=== PATIENT | male | born 1980 | race Caucasian/White ===

== ENCOUNTER 2016-12-13 14:52 | Inpatient (IN) | payer OTHER ==
[~2016-12-13] VITALS: Ht 165.1 cm; Wt 93.6 kg
[~2016-12-13 14:52] MED LIST: ELIQUIS5 MG PO; GLUCOMETER; HUMULIN R U-100 U/ML SUBQ; KEFLEX250 MG PO; LEVEMIR100 U/ML SUBQ; METFORMIN1000 MG PO; NORCO 10/325 MG1 TAB PO; PEPCID20 MG PO; ZESTRIL5 MG PO
--- NOTE | 2016-12-13 14:52 | NUR ---
Patient BIBA ACLS, transferred to bed 5. RN evaluating patient at bedside.
--- NOTE | 2016-12-13 14:54 | NUR ---
Dr. Morgan evaluating patient at bedside.
[2016-12-13] MEDS ORDERED: NACL 0.9% 1,000 ML IV SCH (14:58)
[2016-12-13] MEDS ORDERED: INSULIN HUMAN REGULAR 100 UNITS/ML 10 ML VIAL IVP ONE ×2 (15:00→16:05)
[2016-12-13] MEDS ORDERED: ONDANSETRON 4 MG/2 ML VIAL IVP ONE (15:00)
[2016-12-13] MEDS ORDERED: NACL 0.9% 2,000 ML IV ONE (15:00)
[2016-12-13 15:07] VITALS: BP 97/61
--- NOTE | 2016-12-13 15:12 | NUR ---
36/M BIB EMS, FAMILY STATES PT. MORE CONFUSED THAN NORMAL, BLOOD SUGAR AT HOME IN THE 400'S, HERE 600+, PT. NON AMBULATORY AND ALTERED. PATIENT PRESENTS TO ED WITH NON VERBAL,N/V NOTED AT THIS TIME. SKIN IS PALE/COLD; LUNGS CLEAR BL; HR EVEN AND REGULAR; PATIENT POSITIONED FOR COMFORT; HOB ELEVATED; BEDRAILS UP X2; BED DOWN. ER MD MADE AWARE OF PT STATUS.
--- NOTE | 2016-12-13 15:40 | NUR ---
PT MORE ALERT & ORIENTED; PT ABLE TO VERBALIZE NEEDS; STATED " I WANT SOMETHING FOR MY LIPS"; LIP SWABS PROVIDED; PT STABLE AT THIS TIME; WILL CONTINUE TO MONITOR.
[2016-12-13] MEDS ORDERED: cefTRIAXone 2,000 MG in DEXTROSE 5% 100 ML IV ONE (16:00)
[2016-12-13] MEDS ORDERED: INSULIN HUMAN REGULAR 100 UNITS in NACL 0.9% 100 ML IV ONE (16:05)
[2016-12-13] MEDS ORDERED: HYDROmorphone 1 MG/ML AMP IVP PRN ×2 (16:15)
[2016-12-13] MEDS ORDERED: cefTRIAXone 2,000 MG VIAL ONE (16:26)
--- NOTE | 2016-12-13 16:41 | NUR ---
LAB COLLECTING BLOOD CULTURES AT BEDSIDE AT THIS TIME.
--- NOTE | 2016-12-13 16:41 | NUR ---
GAVE REPORT TO GRACY TURPIN.
--- NOTE | 2016-12-13 16:50 | NUR ---
RECEIVED PT AAO X 3, BREATHING NORMALLY, LETHARGIC. SR ON THE MONITOR, LUNGS CLEAR TO BL. BOWEL SOUNDS PRESENT TO ALL QUADRANTS, ABLE TO MOVE ALL EXTREMITIES, FAMILY AT BEDSIDE, SCARS TO BL LEGS, BLADDER NON DISTENDED, WILL CONTINUE TO CARE.
--- NOTE | 2016-12-13 16:50 | NUR ---
Patient will be admitted to care of DR. BAUTISTA. Admited to ICU. Will go to room ICU 5. Belongings list completed. Report to GRACY TURPIN.
[2016-12-13 17:00] VITALS: BP 106/61
[2016-12-13] MEDS ORDERED: DEXTROSE 50% 50 ML SYR IVP PRN (17:10)
[2016-12-13] MEDS ORDERED: MORPHINE SULFATE 4 MG/ML SYR IVP PRN (17:15)
[2016-12-13] MEDS ORDERED: ALBUTEROL 0.083% 2.5 MG/3 ML NEBU IH PRN (17:15)
--- NOTE | 2016-12-13 17:16 | NUR ---
SPOKE TO REGARDING ABG ORDERS, PHYSICIAN STATES PT DOES NOT NEED ABG AND WILL CANCEL ORDERS.
[2016-12-13] MEDS: BLOOD GLUCOSE MONITORING 1 DEV DEV FS SCH ×7 (17:28→23:12)
--- NOTE | 2016-12-13 17:28 | NUR ---
DR LISA AT BEDSIDE ASSESSING PATIENT. RECEIVED ORDERS. WILL FOLLOW UP. RECEIVED CALL FROM LAB AT 1725 FOR CRITICAL LACTIC ACID 3.2. MD AT BEDSIDE AND AWARE. WILL FOLLOW UP WITH ORDERS.
[2016-12-13] MEDS: DEXT 5% / NACL 0.45% 1,000 ML IV SCH ×2 (17:32→23:49)
[2016-12-13] MEDS: INSULIN HUMAN REGULAR 100 UNITS in NACL 0.9% 100 ML IV SCH (17:32)
[2016-12-13 18:00] VITALS: BP 98/63
--- NOTE | 2016-12-13 18:00 | NUR ---
DR. LISA AT BEDSIDE, MD ASSESSED PT AND SPOKE WITH FAMILY REGARDING PT'S CARE AND CONDITION, WILL CONTINUE TO MONITOR PT
--- NOTE | 2016-12-13 19:00 | NUR ---
US TECH AT BEDSIDE.
--- NOTE | 2016-12-13 19:22 | NUR ---
REPORT GIVEN TO GRACY DUNNE, WILL CONTINUE TO CARE FOR THE PT.
--- NOTE | 2016-12-13 19:23 | NUR ---
RECEIVED REPORT FROM OBI RN. INITIAL ASSESSMENT COMPLETED. PT IS LETHARGIC AT THIS TIME BUT AROUSABLE TO VERBAL STIMULI. PT IS ON ROOM AIR. NO SIGNS OF DISTRESS OR SOB NOTED. 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 IV ACCESS AT LEFT AC 20G AND RIGHT AC 20G. ON INSULIN DRIP ORDERED. PATENT, INTACT AT THIS TIME. URINAL AT BEDSIDE. SAFETY MEASURE ENSURE, BED IN LOW POSITION. WILL CONTINUE TO MONITOR.
--- NOTE | 2016-12-13 19:48 | NUR ---
RT AT BEDSIDE.
[2016-12-13 20:00] VITALS: BP 98/51
[2016-12-13] MEDS ORDERED: HYDROcodone/APAP 10/325 MG 1 TAB TAB PO SCH (20:00)
[2016-12-13] MEDS ORDERED: HYDROcodone/APAP 10/325 MG 1 TAB TAB PO PRN (20:00)
[2016-12-13] MEDS: ONDANSETRON 4 MG/2 ML VIAL IVP PRN (20:24)
--- NOTE | 2016-12-13 20:40 | NUR ---
CHARGE NURSE RECEIVED CRITICAL REPORT FROM LAB AT [address] RUBY AT 2029. RECEIVED CALL BACK FROM DR. RUBY AT 2039 AND NOTIFIED OF THE CRITICAL RESULTS. NO NEW ORDERS MADE. WILL CONTINUE TO MONITOR.
--- NOTE | 2016-12-13 20:41 | NUR ---
DR. RUBY SAID K LEVEL OF 2.7 IS OK SINCE PT IS ON INSULIN DRIP. WILL CONTINUE TO MONITOR.
--- NOTE | 2016-12-13 20:41 | NUR ---
PT NAUSEATED AND VOMITING, ZOFRAN GIVEN ORDERED. DR. RUBY AWARE.
[2016-12-13 22:00] VITALS: BP 100/67
--- NOTE | 2016-12-13 22:25 | NUR ---
PAGED DR. RUBY AT 2219. RECEIVED A CALL BACK AT 2224. NOTIFIED ABOUT US OF BILATERAL LOWER EXTREMITIES RESULT. WITH ORDERS MADE. MD ALSO AWARE THAT PT IS STILL VOMITING, WITH ORDERS MADE. MD NOTIFIED OF BSL STILL HIGH, WITH ORDERS MADE. WILL CONTINUE TO MONITOR.
[2016-12-13] MEDS ORDERED: COMMUNICATION ORDER MC PRN (22:50)
[2016-12-14] VITALS (12 sets, daily range): BP systolic 91–120; BP diastolic 44–75
[2016-12-14] MEDS: BLOOD GLUCOSE MONITORING 1 DEV DEV FS SCH ×24 (00:24→23:20)
--- NOTE | 2016-12-14 00:33 | NUR ---
AWARE OF HI BSL. WILL CONTINUE TO MONITOR. Addendum: 12/14/16 at 0132 by Gauri Sapp RN DR. RUBY SAID TO CHECK GLUCOSE LEVEL AND ANION GAP FROM LAB DRAW THAT IS DUE AT THIS TIME. IF THE RESULT IS TRENDING DOWN JUST CONTINUE INSULIN DRIP ORDERED.
--- NOTE | 2016-12-14 00:40 | NUR ---
GUITAR PLAYER AT BEDSIDE.
--- NOTE | 2016-12-14 01:44 | NUR ---
RECEIVED CRITICAL REPORT FROM LAB. GLUCOSE OF 600, K 2.5. PT STILL ON INSULIN DRIP AT THIS TIME. WILL CONTINUE TO MONITOR.
[2016-12-14] MEDS: INSULIN HUMAN REGULAR 100 UNITS in NACL 0.9% 100 ML IV SCH ×3 (02:02→18:10)
--- NOTE | 2016-12-14 02:20 | NUR ---
PT HAS BEEN ASKING FOR WATER, EXPLAINED TO HIM THAT THE DOCTOR ORDERED NOTHING BY MOUTH SO HE CANNOT HAVE ANYTHING. PT STILL INSISTING TO HAVE SOME WATER.
--- NOTE | 2016-12-14 03:19 | NUR ---
NO SIGNS OF DISTRESS/NO SOB NOTED. WILL CONTINUE TO MONITOR.
--- NOTE | 2016-12-14 04:52 | NUR ---
PT COMPLAINT OF DRYNESS OF THROAT AND ASKED FOR WATER, REINSTRUCTED PT THAT HE CANNOT EAT OR DRINK ANYTHING AT THIS TIME PER MD ORDER ON NPO. PT VERBALIZED UNDERSTANDING. WILL CONTINUE TO MONITOR.
--- NOTE | 2016-12-14 05:36 | NUR ---
RECEIVED CRITICAL LAB REPORT FOR GLUCOSE AND POTASSIUM LEVEL. GLUCOSE LEVEL TRENDING DOWN, AWARE OF LOW K LEVEL ON 12/13/161999. PT IS STILL ON INSULIN DRIP. WILL CONTINUE TO MONITOR.
--- NOTE | 2016-12-14 05:55 | NUR ---
MORNING CARE DONE. NO SIGNS OF DISTRESS/NO SOB NOTED.
--- NOTE | 2016-12-14 06:13 | NUR ---
PT AGAIN ASKED FOR WATER, REMINDED HIM AGAIN HE CANNOT HAVE ANYTHING BY MOUTH AT THIS TIME.
[2016-12-14] MEDS: DEXT 5% / NACL 0.45% 1,000 ML IV SCH ×3 (06:22→18:56)
[2016-12-14] MEDS: ONDANSETRON 4 MG/2 ML VIAL IVP PRN (06:22)
--- NOTE | 2016-12-14 07:19 | NUR ---
REPORT GIVEN TO GRACY NOLAN FOR CONTINUITY OF CARE.
--- NOTE | 2016-12-14 07:20 | NUR ---
RECEIVED REPORT FROM GRACY COATES. NO SIGNS OF ACUTE DISTRESS AT THIS TIME, NO C/O PAIN. PT IS ON ROOM AIR. PT IS AAOX4. IV TO RIGHT AC #20 AND LEFT AC #20 PATENT AND INTACT. PT IS ON INSULIN DRIP AT 12 UNITS/HR. SKIN IS INTACT. SAFETY PRECAUTIONS IN PLACE WITH BED IN LOWEST POSITION AND SIDE RAILS UP X2. CALL LIGHT WITHIN REACH. PT IS CURRENTLY SINUS TACHYCARDIA ON MONITOR. WILL CONTINUE TO MONITOR.
[2016-12-14] MEDS: ENOXAPARIN 100 MG/ML SYR SUBQ SCH (08:32)
--- NOTE | 2016-12-14 08:32 | NUR ---
ASLEEP EASILY AWAKENS IN SFW POSITION PATIENT ASSESSMENT DONE NOTED CXR DATED 12/10/2016 REVIEWED HHN PRN THERAPY GIVEN ORDERED TOLERATED WELL WITHOUT INCIDENT
--- NOTE | 2016-12-14 08:44 | NUR ---
PT TOLERATED MEDS WELL.
--- NOTE | 2016-12-14 09:34 | NUR ---
RECEIVED CALLBACK FROM DR. LISA. NEW ORDERS RECEIVED.
--- NOTE | 2016-12-14 09:35 | NUR ---
DR. LISA NOTIFIED OF LOW POTASSIUM: 2.6. NO NEW ORDERS AT THIS TIME.
[2016-12-14] MEDS: PROMETHAZINE 25 MG/ML VIAL IVP PRN ×2 (10:44→20:48)
--- NOTE | 2016-12-14 10:46 | NUR ---
PT C/O NAUSEA. ADMINISTERED PHENERGAN ORDERED FOR PRN NAUSEA. PT TOLERATED WELL.
--- NOTE | 2016-12-14 11:24 | NUR ---
CHECKED ON PT. RESTING AT THIS TIME, AROUSABLE. CALL LIGHT WITHIN REACH. WILL CONTINUE TO MONITOR.
--- NOTE | 2016-12-14 13:05 | NUR ---
DR. LISA IN TO SEE PT. WILL FOLLOW UP ON ORDERS.
--- NOTE | 2016-12-14 13:10 | NUR ---
DR. LISA AWARE THAT PT DE-SATURATES 88%-89% WHILE SLEEPING.
--- NOTE | 2016-12-14 14:00 | NUR ---
OFFERED ORAL AND HYGIENE CARE. PT REFUSED.
--- NOTE | 2016-12-14 14:20 | NUR ---
CHECKED ON PT. RESTING AT THIS TIME, AROUSABLE. CALL LIGHT WITHIN REACH. WILL CONTINUE TO MONITOR.
--- NOTE | 2016-12-14 15:32 | NUR ---
PT TOLERATED MEDS WELL.
--- NOTE | 2016-12-14 16:15 | NUR ---
CHECKED BS: 359. PER PROTOCOL, INCREASED INSULIN DRIP TO 5 UNITS/HR. PAGED DR. LISA. AWAITING CALLBACK.
--- NOTE | 2016-12-14 16:21 | NUR ---
RECEIVED CALLBACK FROM DR. LISA. NEW ORDERS RECEIVED.
--- NOTE | 2016-12-14 17:46 | NUR ---
RECEIVED CALL FROM PT'S SISTER, ATTILA. UPDATED HER ON PT'S PLAN OF CARE. INFORMED SHE WILL COME IN TOMORROW TO VISIT PT.
--- NOTE | 2016-12-14 18:16 | NUR ---
PT UP IN BED AND WATCHING TV. ALL NEEDS MET AT THIS TIME. CALL LIGHT WITHIN REACH.
--- NOTE | 2016-12-14 19:20 | NUR ---
RECEIVED REPORT FROM GRACY NOLAN AT BEDSIDE, PATIENT IS AAOX4, ABLE TO FOLLOW COMMANDS AND MAKE NEEDS KNOWN. DENIES PAIN, NO SOB/DISTRESS NOTED, ON RA, NON-PRODUCTIVE COUGHING NOTED, CLEAR LUNG SOUNDS. 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 ACTIVE BOWEL SOUNDS. AFEBRILE, SKIN IS WARM AND DRY TO TOUCH, NO OPEN WOUND PRESENT, ABLE TO MOVE ALL EXTREMITIES, POSITIVE BLE DVT, ON LOVENOX. PERIPHERAL IV SITE AT RIGHT AC 20GA, SL. LEFT AC 20 GA RUNNING INSULIN DRIP AT 3 UNITS PER HOUR. SAFETY CHECKED, BED IN LOW POSITION, CALL LIGHT WITHIN REACH, WILL CONTINUE TO MONITOR AT THIS TIME.
--- NOTE | 2016-12-14 21:00 | NUR ---
PATIENT C/O NAUSEA, MEDICATION GIVEN, WILL CONTINUE TO MONITOR.
[2016-12-15] VITALS (8 sets, daily range): BP systolic 93–115; BP diastolic 53–71
--- NOTE | 2016-12-15 | NUR ---
PATIENT IS ASLEEP, NO CHANGE OF CONDITION AT THIS TIME.
[2016-12-15] MEDS: BLOOD GLUCOSE MONITORING 1 DEV DEV FS SCH ×13 (00:18→11:09)
--- NOTE | 2016-12-15 00:45 | NUR ---
K2.6 DR PA NOTIFIED ,SEE ORDER
[2016-12-15] MEDS: POTASSIUM CHLORIDE 10 MEQ TABER PO SCH ×2 (01:22→05:18)
--- NOTE | 2016-12-15 01:30 | NUR ---
PATIENT C/O THROAT PAIN, FEELING DISCOMFORT, POSITION CHANGED FOR COMFORT, PAIN MEDICATION GIVEN, WILL CONTINUE TO MONITOR.
--- NOTE | 2016-12-15 04:00 | NUR ---
AM CARE PROVIDED, NO CHANGE OF CONDITION AT THIS TIME.
--- NOTE | 2016-12-15 06:00 | NUR ---
NO CHANGE OF CONDITION AT THIS TIME.
[2016-12-15] MEDS: DEXT 5% / NACL 0.45% 1,000 ML IV SCH (06:16)
--- NOTE | 2016-12-15 07:30 | NUR ---
RECEIVED REPORT FROM EMERSON DUBOSE. PT IS SLEEPING BUT EASILY AWAKING BY INITIAL ASSESSMENT. BEDSIDE MONITOR SHOWS ST AT THIS TIME. ROOM AIR, NO S/S OF RESPIRATORY DISTRESS NOTED. LUNG SOUNDS CLEAR. ACTIVE BOWEL SOUND.SKIN INTACT, WARM AND DRY. ABLE TO MOVE ALL HIS EXTREMITIES. IV TO RIGHT AC #20,SALINE LOCKED. LEFT AC RUNNING INSULIN DRIP AT 4 UNITS/HR AND D5 1/2NS AT 75 ML/HR. NO FEVER. PT DOES NOT COMPLAIN ANY PAIN AT THIS TIME. SIDE RAILS UP X2, LOW BED POSITION, HOB ELEVATED 30 DEGREES. CALL LIGHTS IN REACH , WILL CONTINUE TO MONITOR.
--- NOTE | 2016-12-15 09:20 | NUR ---
PT RESTING IN BED, ON ROOM AIR. NO S/S OF RESPIRATORY DISTRESS NOTED AT THIS TIME. OFFER PT URINAL, PT HAD 300 ML CLEAR YELLOW URINE OUTPUT.
[2016-12-15] MEDS: ENOXAPARIN 100 MG/ML SYR SUBQ SCH (09:23)
--- NOTE | 2016-12-15 10:26 | NUR ---
PATIENT HAS BEEN SCREENED AND CATEGORIZED HIGH NUTRITION RISK. PATIENT WILL BE SEEN WITHIN 1-2 DAYS OF ADMISSION. 12/14/16-12/15/[address]
[2016-12-15] MEDS ORDERED: DEXTROSE 50% 50 ML SYR IVP PRN (11:15)
--- NOTE | 2016-12-15 11:15 | NUR ---
PT IS SLEEPING. NO S/S OF RESPIRATORY DISTRESS NOTED. ON ROOM AIR. CALL LIGHT IN REACH, WILL CONTINUE TO MONITOR.
[2016-12-15] MEDS ORDERED: INSULIN DETEMIR 100 UNITS/ML 10 ML VIAL SUBQ SCH ×2 (11:29→21:00)
[2016-12-15] MEDS ORDERED: ALBUTEROL 0.083% 2.5 MG/3 ML NEBU INH PRN (11:30)
[2016-12-15] MEDS ORDERED: BLOOD GLUCOSE MONITORING 1 DEV DEV FS SCH (11:30)
[2016-12-15] MEDS: INSULIN ASPART SLIDING SCALE 100 UNITS/ML VIAL SUBQ PRN ×2 (11:35→16:09)
--- NOTE | 2016-12-15 11:40 | NUR ---
STOP INSULIN DRIP AFTER GIVING PT LEVEMIR INSULIN AND NOVOLOG INSULIN SLIDING SCALE PER MD ORDER.
--- NOTE | 2016-12-15 13:15 | NUR ---
DR. BAHENA AT BEDSIDE AWARE OF PT.'S BLOOD SUGAR READINGS. SPOKE TO PT. RE: DISCHARGE AND RX. DISCHARGE. INSTRUCTIONS GIVEN.
--- NOTE | 2016-12-15 13:30 | NUR ---
PT AWAKE, ALERT, AND ORIENTED. NO SOB, SERVED PT URINAL , PT HAD 400 ML CLEAR YELLOW URINE. WILL CONTINUE TO MONITOR.
--- NOTE | 2016-12-15 14:30 | NUR ---
PT'S , BROTHER AND SISTER AT BEDSIDE. MADE AWARE OF PT'S DISCHARGE ORDER. PT'S SISTER ATTILA VERBALIZED SOME CONCERNS RE: PT. DR. BAHENA PAGED.
--- NOTE | 2016-12-15 14:35 | NUR ---
SHRUTI TAVERAS CALLED BACK. SPOKE TO PT'S SISTER ATTILA RE: HER CONCERNS. PT'S SISTER SATISFIED AFTER SPEAKING TO DR. BAHENA.
--- NOTE | 2016-12-15 14:45 | NUR ---
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
[2016-12-15] MEDS ORDERED: HYDROcodone/APAP 10/325 MG 1 TAB TAB PO PRN (15:16)
--- NOTE | 2016-12-15 15:17 | NUR ---
12/15/16 RD INITIAL ASSESSMENT COMPLETED PLEASE REFER TO NUTRITION ASSESSMENT UNDER CARE ACTIVITY FOR ESTIMATED NUTRITIONAL NEEDS. RD RECOMMENDATIONS: 1. CONTINUE NPO MEDICALLY NECESSARY PER MD 2. WHEN MEDICALLY APPROPRIATE CONSIDER ADVANCE DIET TOLERATED TO CCHO [address] PROVIDED PT WITH DM DIET EDUCATION 4. RD WILL F/U 3-5 DAYS; MODERATE RISK. FAB [address]
[2016-12-15] MEDS ORDERED: INFLUENZA VIRUS VACCINE QUAD 0.5 ML SYR IMVAC SCH (15:25)
--- NOTE | 2016-12-15 15:50 | NUR ---
DISCHARGE INSTRUCTION GIVEN. PRESCRIPTION GIVEN. EXPLAINED MEDS SIDE EFFECTS AND PURPOSE. ALL PERSONAL BELONGINGS WITH PT.TOLD PT TO COME BACK TO HOSPITAL IF HE HAS ANY DISCOMFORT. PT AND HIS SISTER VERBALIZED UNDERSTANDING. NO FEVER. T 98.6 F. ROOM AIR. NO S/S OF RESPIRATORY DISTRESS NOTED.
--- NOTE | 2016-12-15 16:22 | NUR ---
FAXED INITIAL REVIEW TO [facility] [phone] KRYSTNI [phone] I CALLED KRYSTIN AND INFORMED HER OF THE HOME HEALTH ORDER FOR [facility]. SHE WILL ARRANGE THE HOME HEALTH.
== END 2016-12-15 16:15 | disposition home or self-care (01) | DRG 420 ==
LOC: MED 14:52 → MIC 16:15
PROVIDERS: ADMIT Internal Medicine Pulmonary Disease; ATTEND Internal Medicine Pulmonary Disease
PROC: 3E0234Z Introduction of Serum, Toxoid and Vaccine into Muscle, Percutaneous Approach (ICD-10-PCS; principal; 2016-12-15)
DX: E13.10 Other specified diabetes mellitus with ketoacidosis without coma (principal); G93.41 Metabolic encephalopathy; T68.XXXA Hypothermia, initial encounter; K85.90 Acute pancreatitis without necrosis or infection, unspecified; N17.9 Acute kidney failure, unspecified; K31.84 Gastroparesis; I10 Essential (primary) hypertension; E86.1 Hypovolemia; E87.1 Hypo-osmolality and hyponatremia; Z86.718 Personal history of other venous thrombosis and embolism; Z79.4 Long term (current) use of insulin; Z79.01 Long term (current) use of anticoagulants; Z91.11 Patient's noncompliance with dietary regimen; Z23 Encounter for immunization